=== PATIENT | male | born 1950 | race Caucasian/White ===

== ENCOUNTER 2021-06-05 15:28 | Inpatient (IN) ==
--- NOTE | 2021-06-05 15:34 | Emergency Department Note ---
Back Pain HPI General Chief Complaint: Back Pain/Injury Stated Complaint: head, neck and back pain Time Seen by Provider: 06/05/21 15:32 Source: patient Limitations: no limitations History of Present Illness HPI Narrative: Narrative: Patient is a 70-year-old male that presents to the emergency department today with complaint of sharp pain located at the upper portion of his neck, posterior of head and radiates to the lateral side of left and right side of head. Patient was initially seen at [facility] due to fever and tachycardia he was advised to come to the emergency department. He rates the Headache pain 7 out of 10 on a 0-10 numerical pain scale. Patient indicates that he has received Remicade infusion since 1987 and receives an infusion every 8 weeks. He received an infusion yesterday and when he went home his symptoms began. After the pain started he started to have fever and occasionally feeling chilled. He has had a cough but denies any shortness of breath or chest pain. He has not had any abdominal pain, nausea, or vomiting. He reports that his headache is aggravated with looking side to side. He denies any vision changes, confusion, or weakness. He denies any paresthesias. He denies any thoracic or low back pain. He denies any dysuria but has noticed some occasional urinary hesitancy. He has not had any flank pains. Patient receives Remicade for Crohn's. He does have a history of type 2 di abetes. He indicates that his blood sugars are typically in the 200s. His hemoglobin A1c March 05, 2021 was 11%. Related Data Home Medications Medication Instructions Recorded Confirmed calcium carbonate 600 mg-vitamin 1 tab PO QDAY tab 10/16/14 06/05/21 D3 20 mcg (800 unit) tablet vitamin E 400 unit capsule 400 unit PO DAILY 07/31/15 06/05/21 lecithin 1,200 mg capsule 1,200 mg PO .COMPLEX PRN 12/26/18 06/05/21 magnesium 250 mg tablet 400 mg PO BID tab 12/26/18 06/05/21 multivitamin with iron [One Tablet 1 cap PO QDAY 03/27/19 06/05/21 Daily/Iron] budesonide 3 mg 3 mg PO TID 08/28/20 06/05/21 capsule,delayed,extended release clonazepam 0.5 mg tablet 0.5 mg PO QHS 06/05/21 06/05/21 cyanocobalamin (vitamin B-12) 1,000 mcg IM QMONTH 06/05/21 06/05/21 1,000 mcg/mL injection solution doxepin 50 mg capsule 50 mg PO QHS 06/05/21 06/05/21 glipizide 5 mg tablet, extended 10 mg PO BID 06/05/21 06/05/21 release 24 hr metformin 500 mg tablet,extended 500 mg PO BID 06/05/21 06/05/21 release 24 hr Previous Rx's Medication Instructions Recorded omeprazole 20 mg capsule,delayed 20 mg PO TID #90 cap 09/06/19 release blood sugar diagnostic (Accu-Chek #100 each 04/13/20 SmartView Test Strip) albuterol sulfate 90 mcg/actuation 2 puff INHALATION .COMPLEX PRN #18 12/04/20 aerosol inhaler (Ventolin HFA) g lisinopril 40 mg tablet 40 mg PO QDAY #90 tab 01/18/21 Allergies Allergy/AdvReac Type Severity Reaction Status Date / Time azathioprine [From Imuran] Allergy Severe Unknown Verified 06/05/21 14:48 morphine Allergy Severe Anaphylaxis Verified 06/05/21 14:48 Zolpidem Allergy Mild Itching Verified 06/05/21 14:48 fluoxetine [From Prozac] Allergy Unknown Unknown Verified 06/05/21 14:48 sitagliptin [From Januvia] Allergy Unknown Stomach Verified 06/05/21 14:48 ache, diarrhea meperidine [From Demerol] AdvReac Mild Nausea Verified 06/05/21 14:48 naproxen AdvReac Unknown Fever Verified 06/05/21 14:48 ibuprofen [From Advil] AdvReac Hypertensio Verified 06/05/21 14:48 n oil based medications AdvReac Mild Other Uncoded 06/05/21 14:48 zepide AdvReac Mild Hallucinati Uncoded 06/05/21 14:48 ng Review of Systems ROS ROS Narrative: Narrative: All systems ED: reviewed and negative except as stated. [facility] Narrative Patient History Narrative: Narrative: Medical/Surgical/Family History All Active Problems (Updated 06/05/21 @ 20:59 by RINKU Ordoñez) COVID-19 (Acute) Fever (Acute) Diastasis recti (Acute) Nevus (Acute) Lumbar back pain with radiculopathy affecting right lower extremity (Acute) Buttock pain (Acute) Elbow pain, right (Acute) Shoulder pain, right (Acute) Influenza A (Acute) Type 2 diabetes mellitus with hyperglycemia (Chronic) Hypertension, essential, benign (Chronic) Anxiety (Chronic) Depression (Chronic) Pain of right heel (Chronic) Ganglion cyst of finger of right hand (Chronic) Visit for suture removal (Chronic) Seborrheic keratosis (Chronic) Osteoarthritis (Chronic) Skin lesions (Chronic) Essential hypertension (Chronic) Diabetes mellitus (Chronic) Stress reaction (Chronic) Sacroiliac joint pain (Chronic 11/03/06) Radicular pain of right lower extremity (Chronic 11/03/06) PUD (peptic ulcer disease) (Chronic 06/02/06) Paresthesia (Chronic 10/04/07) Osteoporosis (Chronic) Osteopenia (Chronic 06/07/06) Osteoarthritis of spine (Chronic 11/28/06) Neutropenia (Chronic) Myalgia (Chronic 02/28/12) Migraine (Chronic) Low back pain (Chronic 11/06/07) Long-term use of high-risk medication (Chronic 08/16/06) 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) Leukopenia (Chronic 08/31/06) Kidney stones (Chronic) Insomnia (Chronic 06/02/06) Hyperlipidemia (Chronic 04/11/08) Hiatal hernia (Chronic 12/07/09) Esophageal reflux (Chronic) Elevated liver enzymes (Chronic 05/01/08) Dysphagia (Chronic) Diabetes mellitus, type II (Chronic 08/19/09) DDD (degenerative disc disease), lumbar (Chronic 09/06/00) Crohn disease (Chronic 11/28/06) Carpal tunnel syndrome on both sides (Chronic 04/16/12) Anemia (Chronic) Anal fistula (Chronic) Achilles bursitis (Chronic 11/06/07) Medical History (Updated 06/05/21 @ 20:59 by RINKU Ordoñez) Abdominal pain, RLQ (06/12/11) Hx of Crohn's Disease Achilles bursitis (11/06/07) Acute tonsillitis Anal fistula 1985 Anemia Mild Anxiety Blast injury Bronchitis Bronchitis with bronchospasm Carpal tunnel syndrome on both sides (04/16/12) Cellulitis mild. Upper end of incision above elbow right side Crohn disease (11/28/06) 1997; 11-28-2006 currently stable DDD (degenerative disc disease), lumbar (09/06/00) Depression Diabetes mellitus Hemoglobin A1c now up to 8.6%. (Previously 7.9%) Diabetes mellitus, type II (08/19/09) Duodenitis without hemorrhage (06/19/06) Patchy Dysphagia Hx of intermittent to solids Elevated liver enzymes (05/01/08) 05-01-2008 & 05-16-2008 Encounter for blood transfusion 05/09/2008 - Past history of Esophageal reflux Stable at present Fracture of foot, closed 1992 Fx of back of heel bone. 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 Chronic, recurring. Myalgia (02/28/12) Suggestive of statin-induced myostitis. Neutropenia d/t Imuran Osteoarthritis of spine (11/28/06) Of the lumbar spine, degenerative Osteopenia (06/07/06) Of the hips Osteoporosis Pain of right heel Paresthesia (10/04/07) Lower Extremities. Pneumonia Spring 1954 Bronchial pneumonia. And 08-21-2006-Questionable R. perihliar infiltrate. PUD (peptic ulcer disease) (06/02/06) Radicular pain of right lower extremity (11/03/06) Sacroiliac joint pain (11/03/06) Right. Stress reaction Type 2 diabetes mellitus with hyperglycemia Visual disturbance (02/22/13) Wheezing intermittent Surgical History Closed fracture of upper end of right ulna with routine healing H/O adenoidectomy 1954 H/O carpal tunnel repair 08/20/12 Dr Zazueta, Left H/O colectomy (05/03/88) Status post R. colectomy & resection of 3 cm's of terminal ileum with sigmoid resection in 1988 for Crohn's disese H/O colonoscopy (09/07/11) Crohn's Disease- Crohn's ulceration at his ileocolonic anastomosis, which was patent. Sigmoid anastomosis patient w/out Crohn's activity. 08/[address] Quijano - found 5 polyps, 2 of which were benign. Crohn's ileitis. 07/31/15-2 adenomas, Crohn'sdisease at anastomosis. H/O esophagogastroduodenoscopy (09/07/11) 10/22/12 Dr Martinez, HH & gastritis. H/O foot surgery (03/04/11) Heel surgery for a R. foot deformity H/O hand surgery 1982 Left hand laceration. History of carpal tunnel release 09/2017 Dr Mars. Right wrist. History of esophagogastroduodenoscopy (EGD) Dr. Quijano 08/2019 History of nasal septoplasty (10/26/16) bilateral submucosal reduction of inferior turninates History of surgery on arm Right arm. From blood poisoning Hx of tonsillectomy Spring 1954 Multiple abrasions Multiple contusions Open olecranon fracture S/P small bowel resection S/P wrist surgery Left wrist about 30 years ago. Family History Unknown Diabetes mellitus Father Acute myocardial infarction Mother , Small cell type. She was a smoker Malignant neoplasm of lung Social History Smoking Status: Never smoker Alcohol Intake Frequency: holiday/special occasion only Substance Use: does not use Exam Narrative Narrative: Narrative: General Limitations: no limitations General appearance: Present alert and in no apparent distress Head Head: Present atraumatic, normocephalic and normal inspection Eye Eye: Present normal appearance, PERRL, EOMI and visual aquino intact; Absent scleral icterus, conjunctival injection or nystagmus ENT ENT: Present normal oropharynx, mucous membranes dry and TM's normal bilaterally; Absent hoarse voice Neck Neck: Present normal inspection, full ROM and other (Positive Kernig sign. Negative Brudzinski sign); Absent lymphadenopathy Expanded Neck Neck - focused: Present tenderness (other) (Mild tenderness with palpation on the paraspinal muscle left and right side of neck.), pain with extension and pain with flexion; Absent spinous process tenderness, anterior neck swelling, JVD or pain with rotation Chest Chest: Present normal inspection and symmetric chest wall rise Respiratory Respiratory: Present normal lung sounds bilaterally; Absent respiratory dist ress, rales/crackles or accessory muscle use Cardiovascular Cardiovascular: Present regular rate, normal rhythm and normal heart sounds; Absent systolic murmur or diastolic murmur Adbominal Abdominal: Present soft; Absent distention or tenderness Extremities Extremities: Present normal inspection, full ROM and normal capillary refill; Absent pretibial edema or cyanosis Back Back: Present normal inspection and full ROM; Absent spinous process tenderness Neurological Neurological: Present alert, oriented X3, CN II-XII intact and normal gait; Absent motor sensory deficit Expanded Neurological Coma Scale Eye Opening: Spontaneous Coma Scale Motor Response: Obeys Commands Coma Scale Verbal Response: Oriented Coma Scale Total: 15 Psychiatric Psychiatric: Present normal affect and normal mood Skin Skin: Present warm (WNL), dry and normal color Course Vital Signs Vital signs: Vital Signs Temperature 101.5 F H 06/05/21 15:30 Pulse Rate 124 H 06/05/21 15:30 Respiratory Rate 18 06/05/21 15:30 Blood Pressure 121/67 06/05/21 15:30 Pulse Oximetry (%) 93 06/05/21 15:30 Temperature 99.3 F H 06/05/21 18:30 Pulse Rate 96 H 06/05/21 20:46 Respiratory Rate 25 H 06/05/21 20:46 Blood Pressure 121/76 06/05/21 20:46 Pulse Oximetry (%) 94 06/05/21 20:46 [facility] MDM Narrative Medical decision making narrative: Narrative: 70-year-old male with fever and headache that comes into the emergency department today. He was tested for influenza and this was negative. His coronavirus test is positive today. Patient received a liter of normal saline, and ordered a CBC, CMP, blood cultures, and lactic acid. 1 view chest x-ray and head CT was obtained. Head CT today is negative. Patient is positive for coronavirus. His 1 view chest x-ray to my review may have some slight infiltrate. Radiology report still pending. I did discuss this case with supervising physician in the emergency department today, Dr. Peter Ingram. Patient had been complaining of headache and pain with flexion but no actual nuchal rigidity on exam. Positive Kernig and negative Brudzinski sign. Likely COVID-19 most likely cause of patient's headache and he received a liter of normal saline and 1000 g of acetaminophen IV. His headache did subside some and patient's temperature did reduce down to 99.3. Patient is still having tachypnea and mild tachycardia. He did receive a liter of normal saline in the emergency department. Tachycardia did reduce from 120s down to 103. Dr. Ingram did proceed with LP today which was not successful in obtaining this. Patient is still having tachypnea and would likely benefit from hospital admission given that he is high risk of worsening outcome with COVID-19. I was able to talk with Dr. Mendoza who is on today for the hospitalist. He agrees to accept patient to [facility] for inpatient admission. Lab Data Lab results reviewed: Yes I reviewed the patient's lab results. Result diagrams: 06/05/21 15:45 06/05/21 15:45 Labs: Lab Results 06/05/21 06/05/21 06/05/21 Range/Units 15:45 15:45 15:45 WBC 7.4 (4.5-11.0) K/mcL RBC 4.21 L (4.63-6.08) M/mcL Hgb 11.4 L (13.7-17.5) g/dL Hct 35.8 L (40.1-51.0) % MCV 85.0 (80.0-100.0) fL MCH 27.1 (26.0-34.0) pg MCHC 31.8 (31.0-36.0) g/dL RDW 16.5 H (11.5-14.5) % Plt Count 217 (140-440) K/mcL MPV 10.2 (7.4-10.4) fL Neut % (Auto) 61.3 (38.0-78.0) % Lymph % (Auto) 18.1 (15.5-49.0) % [place] % (Auto) 20.2 H (1.0-12.0) % Eos % (Auto) 0.3 (0.0-7.0) % Baso % (Auto) 0.1 (0.0-2.0) % Lymph # (Auto) 1.34 L (1.50-4.80) K/mcL [place] # (Auto) 1.50 H (0.10-0.90) K/mcL Eos # (Auto) 0.02 (0.00-0.70) K/mcL Baso # (Auto) 0.01 (0.00-0.30) K/mcL Absolute Neutrophils 4.54 (1.80-8.00) K/mcL VBG Lactic Acid 1.1 (0.5-2.0) mmol/L Sodium 132 L (133-145) mmol/L Potassium 3.9 (3.3-5.1) mmol/L Chloride 99 (96-108) mmol/L Carbon Dioxide 20 L (22-30) mmol/L Anion Gap 13.0 (8.0-16.0) BUN 10 (8-23) mg/dL Creatinine 1.1 (0.7-1.2) mg/dL GFR Calculation 68 Glucose 210 H (70-105) mg/dL Calcium 9.1 (8.6-10.4) mg/dL Total Bilirubin 0.3 (0.1-1.0) mg/dL AST 46 H (<40) U/L ALT 37 (<40) U/L Alkaline Phosphatase 75 (39-117) U/L Total Protein 7.0 (5.9-8.4) gm/dL Albumin 3.9 (3.2-5.2) gm/dL Globulin 3.1 (2.2-3.7) gm/dL Albumin/Globulin Ratio 1.3 (1.0-2.3) Urine Color Urine Appearance (Clear) Urine pH (5.0-9.0) Ur Specific Lerna (1.000-1.035) Urine Protein (Negative) mg/dL Urine Glucose (UA) (Negative) mg/dL Urine Ketones (Negative) mg/dL Urine Occult Blood (Negative) brenna/mcL Urine Nitrate (Negative) Urine Bilirubin (Negative) mg/dL Urine Urobilinogen mg/dL Ur Leukocyte Esterase (Negative) /uL Urine RBC (0-3) /hpf Urine WBC (0-4) /hpf Ur Squamous Epith Cells (0-4) /hpf Urine Bacteria (0) /hpf Urine Mucus (None) /hpf Ur Culture Indicated? 06/05/21 Range/Units 16:00 WBC (4.5-11.0) K/mcL RBC (4.63-6.08) M/mcL Hgb (13.7-17.5) g/dL Hct (40.1-51.0) % MCV (80.0-100.0) fL MCH (26.0-34.0) pg MCHC (31.0-36.0) g/dL RDW (11.5-14.5) % Plt Count (140-440) K/mcL MPV (7.4-10.4) fL Neut % (Auto) (38.0-78.0) % Lymph % (Auto) (15.5-49.0) % [place]ford % (Auto) (1.0-12.0) % Eos % (Auto) (0.0-7.0) % Baso % (Auto) (0.0-2.0) % Lymph # (Auto) (1.50-4.80) K/mcL [place]ford # (Auto) (0.10-0.90) K/mcL Eos # (Auto) (0.00-0.70) K/mcL Baso # (Auto) (0.00-0.30) K/mcL Absolute Neutrophils (1.80-8.00) K/mcL VBG Lactic Acid (0.5-2.0) mmol/L Sodium (133-145) mmol/L Potassium (3.3-5.1) mmol/L Chloride (96-108) mmol/L Carbon Dioxide (22-30) mmol/L Anion Gap (8.0-16.0) BUN (8-23) mg/dL Creatinine (0.7-1.2) mg/dL GFR Calculation Glucose (70-105) mg/dL Calcium (8.6-10.4) mg/dL Total Bilirubin (0.1-1.0) mg/dL AST (<40) U/L ALT (<40) U/L Alkaline Phosphatase (39-117) U/L Total Protein (5.9-8.4) gm/dL Albumin (3.2-5.2) gm/dL Globulin (2.2-3.7) gm/dL Albumin/Globulin Ratio (1.0-2.3) Urine Color Yellow Urine Appearance Clear (Clear) Urine pH 5.5 (5.0-9.0) Ur Specific Lerna >= 1.030 (1.000-1.035) Urine Protein Trace A (Negative) mg/dL Urine Glucose (UA) 500 mg/dl A (Negative) mg/dL Urine Ketones Trace A (Negative) mg/dL Urine Occult Blood Negative (Negative) brenna/mcL Urine Nitrate Negative (Negative) Urine Bilirubin Negative (Negative) mg/dL Urine Urobilinogen Normal mg/dL Ur Leukocyte Esterase Negative (Negative) /uL Urine RBC 0 (0-3) /hpf Urine WBC 1 (0-4) /hpf Ur Squamous Epith Cells < 1 (0-4) /hpf Urine Bacteria None (0) /hpf Urine Mucus Many A (None) /hpf Ur Culture Indicated? No ED POC Tests ED POC Tests: CHRISSY - SARS Antigen Positive Discharge Plan Patient/Caregiver Discharge Instructions Pt seen by [employer] OPERATOR/PA only: No Clinical Impression: COVID-19 Patient Disposition: Xfer As Inpt ([facility]) Follow up with: Nick Gonslaez ARNP [Primary Care Provider] - Prescriptions: No Action omeprazole 20 mg capsule,delayed release(DR/EC) 20 mg PO TID Qty: 90 5RF (DME) Accu-Chek SmartView Test Strip Strip See Rx Instructions .ROUTE .MEDSUPPLY Qty: 100 0RF Rx Instructions: test blood glucose once daily. DX: E11.65 lisinopril 40 mg tablet 40 mg PO QDAY Qty: 90 1RF calcium carbonate-vitamin D3 600 mg(1,500mg) -800 unit tablet 1 tab PO QDAY 0RF Rx Instructions: administer with food lecithin 1,200 mg capsule 1,200 mg PO .COMPLEX PRN (Reason: Mouth Sore Pain) 0RF Label Comments: 1,200 mg PO PRN; Rx Instructions: 1,200 mg PO PRN; multivitamin with iron 1 cap PO QDAY 0RF Rx Instructions: OTC IRON TABLET qd albuterol sulfate [Ventolin HFA] 90 mcg/actuation HFA aerosol inhaler 2 puff inhalation .COMPLEX PRN (Reason: shortness of breath or wheezing) Qty: 18 2RF Rx Instructions: 2 puffs inhalation q 4-6 hrs prn for wheezing and/or SOB PRN; vitamin E 400 UNIT capsule 400 unit PO DAILY 0RF magnesium 250 mg tablet 400 mg PO BID 0RF budesonide 3 mg Capsule,Delayed,Extend.Release 3 mg PO TID 0RF doxepin 50 mg capsule 50 mg PO QHS 0RF Rx Instructions: TAKE 1 CAPSULE AT BEDTIME clonazepam 0.5 mg tablet 0.5 mg PO QHS 0RF Rx Instructions: take 1 tablet by mouth at bedtime glipizide 5 mg tablet extended release 24 hr 10 mg PO BID 0RF Rx Instructions: TAKE 2 TABLETS EVERY MORNING AND 2 TABLET EVERY EVENING metformin 500 mg tablet extended release 24 hr 500 mg PO BID 0RF Rx Instructions: take 2 tablets by mouth twice a day cyanocobalamin (vitamin B-12) 1,000 mcg/mL solution 1,000 mcg IM QMONTH 0RF Rx Instructions: inject 1 milliliter ( 1000 MCG ) intramuscularly Every Month
[2021-06-05] MEDS ORDERED: 0.9 % SODIUM CHLORIDE 1,000 ML IV ONE (15:35)
[2021-06-05] MEDS ORDERED: ACETAMINOPHEN 1,000 MG/100 ML BAG IV ONE (16:02)
[2021-06-05 16:58] LABS: ALT/SGPT 37 U/L (<40); AST/SGOT 46 U/L (<40); Albumin 3.9 gm/dL (3.2-5.2); Albumin/Globulin Ratio 1.3 (1.0-2.3); Alkaline Phosphatase 75 U/L (39-117); Bilirubin,Total 0.3 mg/dL (0.1-1.0); Blood Urea Nitrogen 10 mg/dL (8-23); Calcium 9.1 mg/dL (8.6-10.4); Carbon Dioxide 20 mmol/L (22-30); Chloride 99 mmol/L (96-108); Globulin 3.1 gm/dL (2.2-3.7); Glomerular Filtration Rate 68; Glucose 210 mg/dL (70-105)
--- NOTE | 2021-06-05 17:19 | Emergency Department Note ---
ED Note Addendum Note Addendum: I evaluated and treated this patient in conjunction with the NIKKY. I agree with their documented history, examination and medical decision making as documented separately. I personally saw the patient and performed a substantive portion of the visit including all aspects of the medical decision making. In addition: Patient is complaining of a headache. He has significant accentuation of his headache with flexion of his neck but no actual nuchal rigidity on exam. I discussed the initial test results with the patient. While I think COVID-19 is the most likely cause of his headache I think there is also a distinct possibility of a false positive test result and meningitis given the fact that he is on significant immunosuppression. I recommended a lumbar puncture and the patient is agreeable with this. Lumbar puncture Verbal and written consent was obtained from patient prior to the procedure. Patient was placed in the left lateral recumbent position. Skin was prepped with Betadine and draped in a sterile fashion. Anesthesia was provided with local infiltration of 1% lidocaine with epinephrine. A 22-gauge Avtar needle was advanced into the L4-L5 interspace. After multiple attempts at redirection no CSF was obtained. The procedure was then repeated in the L3-L4 interspace an d once again no CSF was able to be obtained. The procedure was then aborted. A clean dressing was applied. No complications were observed.
[2021-06-05 17:33] LABS: Appearance,Urine Clear (Clear); Bilirubin,Urine Negative (Negative); Color,Urine Yellow; Culture Indicated,Urine No; Ketones,Urine Trace mg/dL (Negative); Leukocyte Esterase,Urine Negative /uL (Negative); Mucus,Urine MANY /hpf; Nitrate,Urine Negative (Negative); PH,Urine 5.5 (5.0-9.0); Protein,Urine Trace mg/dL (Negative); Specific Gravity,Urine >= 1.030 (1.000-1.035); Urine Blood Negative ery/mcL (Negative); Urine RBC 0 /hpf (0-3); Urine Squamous Epithelial Cell < 1 /hpf (0-4); Urine WBC 1 /hpf (0-4); Urobilinogen,Urine Normal
[2021-06-05 17:56] LABS: Basophils # (Auto) 0.01 K/mcL (0.00-0.30); Basophils % (Auto) 0.1 % (0.0-2.0); Eosinophils # (Auto) 0.02 K/mcL (0.00-0.70); Eosinophils % (Auto) 0.3 % (0.0-7.0); Hematocrit 35.8 % (40.1-51.0); Hemoglobin 11.4 g/dL (13.7-17.5); Lymphocytes # (Auto) 1.34 K/mcL (1.50-4.80); Lymphocytes % (Auto) 18.1 % (15.5-49.0); Mean Corpuscular HGB Conc 31.8 g/dL (31.0-36.0); Mean Platelet Volume 10.2 fL (7.4-10.4); Monocytes % (Auto) 20.2 % (1.0-12.0); Neutrophils % (Auto) 61.3 % (38.0-78.0); Platelet Count 217 K/mcL (140-440); RBC 4.21 M/mcL (4.63-6.08); Red Cell Distribution Width 16.5 % (11.5-14.5); WBC 7.4 K/mcL (4.5-11.0)
--- NOTE | 2021-06-05 20:33 | Internal Med History&Physical ---
HPI History of Present Illness Patient information: Note initiated : 06/05/21 at 8:19 pm Service Date, if different from initiated Date: [] Patient: Semaj Garnica a 70 y/o M admitted on for head, neck and back pain. Chief Complaint: [] History of present illness: Mr. Garnica is a 70 year old M Scented to minor care because he felt weak headaches body aches fever lightheadedness. He got his Remicade infusion for Crohn's yesterday morning and then started feeling crummy afterwards and has continued since that time. He has a bad headache with pain in the neck as well. No significant photophobia more than usual. Does complain of stiff neck. No nausea vomiting. Is found to be tachycardic tachypneic and febrile in the ED. Has had the Isaac & Isaac vaccine and booster. He has had a cough and shortness of breath. Head CT was negative. Covid test was positive. Given the headache fever stiff neck and an LP was attempted but unsuccessful. Tachycardia improved with IV fluids. Review of Systems: Pertinent positives as above. Denies nausea/vomiting/chest or pain/. Remaining 10 point review of system reviewed negative PFSH PFSH All Active Problems (Updated 06/05/21 @ 15:22 by Herminio Valdovinos PA-C) Fever (Acute) Diastasis recti (Acute) Nevus (Acute) Lumbar back pain with radiculopathy affecting right lower extremity (Acute) Buttock pain (Acute) Elbow pain, right (Acute) Shoulder pain, right (Acute) Influenza A (Acute) Type 2 diabetes mellitus with hyperglycemia (Chronic) Hypertension, essential, benign (Chronic) Anxiety (Chronic) Depression (Chronic) Pain of right heel (Chronic) Ganglion cyst of finger of right hand (Chronic) Visit for suture removal (Chronic) Seborrheic keratosis (Chronic) Osteoarthritis (Chronic) Skin lesions (Chronic) Essential hypertension (Chronic) Diabetes mellitus (Chronic) Stress reaction (Chronic) Sacroiliac joint pain (Chronic 11/03/06) Radicular pain of right lower extremity (Chronic 11/03/06) PUD (peptic ulcer disease) (Chronic 06/02/06) Paresthesia (Chronic 10/04/07) Osteoporosis (Chronic) Osteopenia (Chronic 06/07/06) Osteoarthritis of spine (Chronic 11/28/06) Neutropenia (Chronic) Myalgia (Chronic 02/28/12) Migraine (Chronic) Low back pain (Chronic 11/06/07) Long-term use of high-risk medication (Chronic 08/16/06) 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) Leukopenia (Chronic 08/31/06) Kidney stones (Chronic) Insomnia (Chronic 06/02/06) Hyperlipidemia (Chronic 04/11/08) Hiatal hernia (Chronic 12/07/09) Esophageal reflux (Chronic) Elevated liver enzymes (Chronic 05/01/08) Dysphagia (Chronic) Diabetes mellitus, type II (Chronic 08/19/09) DDD (degenerative disc disease), lumbar (Chronic 09/06/00) Crohn disease (Chronic 11/28/06) Carpal tunnel syndrome on both sides (Chronic 04/16/12) Anemia (Chronic) Anal fistula (Chronic) Achilles bursitis (Chronic 11/06/07) Medical History (Updated 06/05/21 @ 15:22 by Herminio Valdovinos PA-C) Abdominal pain, RLQ (06/12/11) Hx of Crohn's Disease Achilles bursitis (11/06/07) Acute tonsillitis Anal fistula 1985 Anemia Mild Anxiety Blast injury Bronchitis Bronchitis with bronchospasm Carpal tunnel syndrome on both sides (04/16/12) Cellulitis mild. Upper end of incision above elbow right side Crohn disease (11/28/06) 1997; 11-28-2006 currently stable DDD (degenerative disc disease), lumbar (09/06/00) Depression Diabetes mellitus Hemoglobin A1c now up to 8.6%. (Previously 7.9%) Diabetes mellitus, type II (08/19/09) Duodenitis without hemorrhage (06/19/06) Patchy Dysphagia Hx of intermittent to solids Elevated liver enzymes (05/01/08) 05-01-2008 & 05-16-2008 Encounter for blood transfusion 05/09/2008 - Past history of Esophageal reflux Stable at present Fracture of foot, closed 1992 Fx of back of heel bone. 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 Chronic, recurring. Myalgia (02/28/12) Suggestive of statin-induced myostitis. Neutropenia d/t Imuran Osteoarthritis of spine (11/28/06) Of the lumbar spine, degenerative Osteopenia (06/07/06) Of the hips Osteoporosis Pain of right heel Paresthesia (10/04/07) Lower Extremities. Pneumonia Spring 1954 Bronchial pneumonia. And 08-21-2006-Questionable R. perihliar infiltrate. PUD (peptic ulcer disease) (06/02/06) Radicular pain of right lower extremity (11/03/06) Sacroiliac joint pain (11/03/06) Right. Stress reaction Type 2 diabetes mellitus with hyperglycemia Visual disturbance (02/22/13) Wheezing intermittent Surgical History Closed fracture of upper end of right ulna with routine healing H/O adenoidectomy 1954 H/O carpal tunnel repair 08/20/12 Dr Zazueta, Left H/O colectomy (05/03/88) Status post R. colectomy & resection of 3 cm's of terminal ileum with sigmoid resection in 1988 for Crohn's disese H/O colonoscopy (09/07/11) Crohn's Disease- Crohn's ulceration at his ileocolonic anastomosis, which was patent. Sigmoid anastomosis patient w/out Crohn's activity. 08/[address] Quijano - found 5 polyps, 2 of which were benign. Crohn's ileitis. 07/31/15-2 adenomas, Crohn'sdisease at anastomosis. H/O esophagogastroduodenoscopy (09/07/11) 10/22/12 Dr Martinez, HH & gastritis. H/O foot surgery (03/04/11) Heel surgery for a R. foot deformity H/O hand surgery 1982 Left hand laceration. History of carpal tunnel release 09/2017 Dr Mars. Right wrist. History of esophagogastroduodenoscopy (EGD) Dr. Quijano 08/2019 History of nasal septoplasty (10/26/16) bilateral submucosal reduction of inferior turninates History of surgery on arm Right arm. From blood poisoning Hx of tonsillectomy Spring 1954 Multiple abrasions Multiple contusions Open olecranon fracture S/P small bowel resection S/P wrist surgery Left wrist about 30 years ago. Family History Unknown Diabetes mellitus Father Acute myocardial infarction Mother , Small cell type. She was a smoker Malignant neoplasm of lung Social History household members: spouse housing: house lives independently: Yes marital status: education level: high school occupational status: employed occupation: [employer] occupational exposures/hazards: Yes leisure activities: exercise alcohol intake frequency: holiday/special occasion only substance use type: does not use MEDS/ALLERGIES Home Medications and Allergies Home Medications Medication Instructions Recorded Confirmed Type calcium carbonate 600 mg-vitamin 1 tab PO QDAY tab 10/16/14 06/05/21 History D3 20 mcg (800 unit) tablet vitamin E 400 unit capsule 400 unit PO DAILY 07/31/15 06/05/21 History lecithin 1,200 mg capsule 1,200 mg PO .COMPLEX PRN 12/26/18 06/05/21 History magnesium 250 mg tablet 400 mg PO BID tab 12/26/18 06/05/21 History multivitamin with iron [One Tablet 1 cap PO QDAY 03/27/19 06/05/21 History Daily/Iron] omeprazole 20 mg capsule,delayed 20 mg PO TID #90 cap 09/06/19 06/05/21 Rx release blood sugar diagnostic (Accu-Chek #100 each 04/13/20 06/05/21 Rx SmartView Test Strip) budesonide 3 mg 3 mg PO TID 08/28/20 06/05/21 History capsule,delayed,extended release albuterol sulfate 90 mcg/actuation 2 puff INHALATION .COMPLEX PRN #18 12/04/20 06/05/21 Rx aerosol inhaler (Ventolin HFA) g lisinopril 40 mg tablet 40 mg PO QDAY #90 tab 01/18/21 06/05/21 Rx clonazepam 0.5 mg tablet 0.5 mg PO QHS 06/05/21 06/05/21 History cyanocobalamin (vitamin B-12) 1,000 mcg IM QMONTH 06/05/21 06/05/21 History 1,000 mcg/mL injection solution doxepin 50 mg capsule 50 mg PO QHS 06/05/21 06/05/21 History glipizide 5 mg tablet, extended 10 mg PO BID 06/05/21 06/05/21 History release 24 hr metformin 500 mg tablet,extended 500 mg PO BID 06/05/21 06/05/21 History release 24 hr Allergies Allergy/AdvReac Type Severity Reaction Status Date / Time azathioprine [From Imuran] Allergy Severe Unknown Verified 06/05/21 14:48 morphine Allergy Severe Anaphylaxis Verified 06/05/21 14:48 Zolpidem Allergy Mild Itching Verified 06/05/21 14:48 fluoxetine [From Prozac] Allergy Unknown Unknown Verified 06/05/21 14:48 sitagliptin [From Januvia] Allergy Unknown Stomach Verified 06/05/21 14:48 ache, diarrhea meperidine [From Demerol] AdvReac Mild Nausea Verified 06/05/21 14:48 naproxen AdvReac Unknown Fever Verified 06/05/21 14:48 ibuprofen [From Advil] AdvReac Hypertensio Verified 06/05/21 14:48 n oil based medications AdvReac Mild Other Uncoded 06/05/21 14:48 zepide AdvReac Mild Hallucinati Uncoded 06/05/21 14:48 ng EXAM Constitutional Vitals: Temp Pulse Resp BP Pulse Ox 99.3 F H 100 H 28 H 116/73 91 06/05/21 18:30 06/05/21 19:46 06/05/21 19:46 06/05/21 19:46 06/05/21 19:46 Exam: General: Alert, Awake, No acute Distress Eyes/N/T: EOMI, PERRL, Head/Neck: pain with passive movement after certain point of flexion or rotation not like typical meningitis patient, normocephalic atraumatic. Unable to elicit Brudzinski and Kernig signs CV: Tacky but regular, No murmurs, normal s1/s2 Pulm: Mild rhonchi b/l, occasional wheeze s Abd: soft, nontender, +BS x4 Ext: no clubbing/cyanosis, trace b/l LE edema Neuro: Alert, no focal deficits, moves all extremities, CN 2-12 grossly intact, symmetrical strength b/l upper/lower, sensations intact b/l upper/lower. Ment ation intact. Skin: warm/dry DATA Data Completed and Pending Labs: Labs from last 24 hours 06/05/21 06/05/21 06/05/21 16:00 15:45 15:45 WBC RBC Hgb Hct MCV MCH MCHC RDW Plt Count MPV Neut % (Auto) Lymph % (Auto) [place] % (Auto) Eos % (Auto) Baso % (Auto) Lymph # (Auto) [place] # (Auto) Eos # (Auto) Baso # (Auto) Absolute Neutrophils VBG Lactic Acid 1.1 Sodium 132 L Potassium 3.9 Chloride 99 Carbon Dioxide 20 L Anion Gap 13.0 BUN 10 Creatinine 1.1 GFR Calculation 68 Glucose 210 H Calcium 9.1 Total Bilirubin 0.3 AST 46 H ALT 37 Alkaline Phosphatase 75 Total Protein 7.0 Albumin 3.9 Globulin 3.1 Albumin/Globulin Ratio 1.3 Urine Color Yellow Urine Appearance Clear Urine pH 5.5 Ur Specific Yolyn >= 1.030 Urine Protein Trace A Urine Glucose (UA) 500 mg/dl A Urine Ketones Trace A Urine Occult Blood Negative Urine Nitrate Negative Urine Bilirubin Negative Urine Urobilinogen Normal Ur Leukocyte Esterase Negative Urine RBC 0 Urine WBC 1 Ur Squamous Epith Cells < 1 Urine Bacteria None Urine Mucus Many A Ur Culture Indicated? No 06/05/21 15:45 WBC 7.4 RBC 4.21 L Hgb 11.4 L Hct 35.8 L MCV 85.0 MCH 27.1 MCHC 31.8 RDW 16.5 H Plt Count 217 MPV 10.2 Neut % (Auto) 61.3 Lymph % (Auto) 18.1 [place] % (Auto) 20.2 H Eos % (Auto) 0.3 Baso % (Auto) 0.1 Lymph # (Auto) 1.34 L [place] # (Auto) 1.50 H Eos # (Auto) 0.02 Baso # (Auto) 0.01 Absolute Neutrophils 4.54 VBG Lactic Acid Sodium Potassium Chloride Carbon Dioxide Anion Gap BUN Creatinine GFR Calculation Glucose Calcium Total Bilirubin AST ALT Alkaline Phosphatase Total Protein Albumin Globulin Albumin/Globulin Ratio Urine Color Urine Appearance Urine pH Ur Specific [place]yn Urine Protein Urine Glucose (UA) Urine Ketones Urine Occult Blood Urine Nitrate Urine Bilirubin Urine Urobilinogen Ur Leukocyte Esterase Urine RBC Urine WBC Ur Squamous Epith Cells Urine Bacteria Urine Mucus Ur Culture Indicated? A/P Narrative A/P Narrative: A: *SIRS (Febrile, tachycardic,tachypnic): 2/2 covid vs other *covid PNA: *Acute hypoxic respiratory failure: 2/2 above *headache/neck pain: does present like typical meningitis -CT neg, initial LP unsuccessful *Crohns: on remicade, symptoms started after recent infusion *Immunosuppressed: 2/2 above *DM: *Anemia: *HTN: *GERD: *Hyponatremia, mild: P: -Rem/Dex -O2 supp, IS/Acapella, prn nebs -empric abx for meningitis until LP done -BC including fungal given immunosuppression -abg/dimer -Inflammatory/infectious markers -SSI -Continue home medications -Home medication reconciliation -pt/ot -ppx: Lovenox / home PPI DNR Time Spent With Patient Time: Total time spent is greater than 50% in coordination of care (as documented) at patient's floor/unit and/or counseling patient:
[2021-06-05] MEDS ORDERED: DEXAMETHASONE 10 MG/ML VIAL IV ONE (20:40)
[2021-06-05] MEDS ORDERED: REMDESIVIR 200 MG in 0.9 % SODIUM CHLORIDE 250 ML IV ONE (20:40)
[2021-06-05 21:00] LABS: Prothrombin Time 13.5 sec (11.9-14.5)
[2021-06-05] MEDS ORDERED: VANCOMYCIN 1,500 MG in 0.9 % SODIUM CHLORIDE 500 ML IV ONE (21:45)
[2021-06-05] MEDS ORDERED: VANCOMYCIN PER PHARMACY IV SCH (21:45)
[2021-06-05] MEDS ORDERED: POTASSIUM CHLORIDE 40 MEQ in DEXTROSE 5% IN WATER 500 ML IV PRN (22:06)
[2021-06-05] MEDS ORDERED: ALBUTEROL SULFATE 200 PUFF INHALER INH PRN (22:06)
[2021-06-05] MEDS ORDERED: DEXTROSE 31 GM ORAL.SUSP PO PRN (22:06)
[2021-06-05] MEDS ORDERED: DEXTROSE 50% 50 ML VIAL IV PRN (22:06)
[2021-06-05] MEDS ORDERED: ONDANSETRON 4 MG/2 ML VIAL IV PRN (22:06)
[2021-06-05] MEDS ORDERED: DOXEPIN 50 MG PO SCH (22:06)
[2021-06-05] MEDS ORDERED: SENNOSIDES 1 TABLET PO PRN (22:06)
[2021-06-05] MEDS ORDERED: POTASSIUM CHLORIDE 20 MEQ TABLET PO PRN ×2 (22:06)
[2021-06-05] MEDS ORDERED: METOCLOPRAMIDE 10 MG/2 ML VIAL IV PRN (22:06)
[2021-06-05] MEDS ORDERED: MAGNESIUM SULFATE 2 GM/50 ML BAG IV PRN (22:06)
[2021-06-05] MEDS ORDERED: BUTALB/ACETAMINOPHEN/CAFFEINE 1 TABLET PO PRN (22:06)
[2021-06-05] MEDS ORDERED: IPRATROPIUM/ALBUTEROL 3 ML AMPUL.NEB NEB PRN (22:06)
[2021-06-05] MEDS ORDERED: VANCOMYCIN PER PHARMACY IV ONE (22:06)
[2021-06-05] MEDS ORDERED: OMEPRAZOLE 20 MG CAPSULE PO SCH (22:06)
[2021-06-05] MEDS ORDERED: POLYETHYLENE GLYCOL 3350 17 GM PACKET PO PRN (22:06)
[2021-06-05] MEDS ORDERED: ENOXAPARIN 40 MG/0.4 ML SYRINGE SQ ONE (22:06)
[2021-06-05] MEDS ORDERED: ACETAMINOPHEN 325 MG TABLET PO PRN (22:06)
[2021-06-05 22:49] LABS: C-Reactive Protein 0.5 mg/dL (0.03-0.80)
[2021-06-05 22:59] LABS: Ferritin 26.1 ng/mL (30.0-400.0)
[2021-06-05] MEDS: 0.9 % SODIUM CHLORIDE 1,000 ML IV SCH (23:39)
[2021-06-05] MEDS: 0.9 % SODIUM CHLORIDE 10 ML SYRINGE IV SCH (23:39)
[2021-06-05] MEDS ORDERED: ENOXAPARIN 40 MG/0.4 ML SYRINGE ONE (23:39)
[2021-06-05] MEDS ORDERED: clonazePAM 1 MG TABLET ONE (23:40)
[2021-06-05] MEDS ORDERED: INSULIN LISPRO 1 UNIT/0.01 ML UNIT SQ ONE (23:51)
[2021-06-05] MEDS: INSULIN LISPRO 1 UNIT/0.01 ML UNIT SQ SCH (23:53)
[2021-06-06] MEDS: clonazePAM 0.5 MG TABLET PO SCH ×2 (00:10→21:10)
[2021-06-06] MEDS: CEFEPIME 2 GM VIAL IV SCH ×5 (00:11→21:09)
[2021-06-06] MEDS: AMPICILLIN SODIUM 2 GM VIAL IV SCH ×3 (01:32→06:44)
[2021-06-06] MEDS: BUDESONIDE 3 MG CAP.XL.24H PO SCH ×4 (01:33→21:10)
--- NOTE | 2021-06-06 01:44 | XRay Report ---
CLINICAL INFORMATION: Cough and fever COMPARISON: 07/17/2019 TECHNIQUE: Portable FINDINGS: The heart size, mediastinum and pulmonary vessels are unremarkable. Few small calcified granulomas in the perihilar regions again seen. Minor atelectasis left lateral base noted. There are no effusions. The bones and soft tissues are within normal limits. IMPRESSION: Mild atelectasis left lateral base. Interpreted and Authenticated by: Tamir Anderson 06/06/21
--- NOTE | 2021-06-06 01:50 | Cat Scan Report ---
CLINICAL INFORMATION: Headache and fever COMPARISON: None. TECHNIQUE: 2.5 mm helical slices were obtained in the skull base to vertex. Following reconstruction, axial reformatted images were reviewed at bone and parenchymal windows. The exam was performed using radiation dose optimization techniques including, but not limited to, automated exposure control, adjustment of the mA and/or kV according to patient size and use of iterative reconstruction technique. FINDINGS: The ventricles, sulci, fissures, and cisterns are symmetrically enlarged compatible with mild age-related atrophy. No extra-axial fluid collections are identified. Mild patchy chronic ischemic changes, in the deep cerebral white matter, are expected for age. There is no hemorrhage, mass effect, or edema. Bone windows show no osseous abnormality. IMPRESSION: Mild atrophy and chronic ischemic changes in the deep cerebral white matter-expected for age. No acute findings Interpreted and Authenticated by: Tamir Anderson 06/06/21
[2021-06-06] MEDS: 0.9 % SODIUM CHLORIDE 10 ML SYRINGE IV SCH ×3 (05:37→21:12)
[2021-06-06 07:55] LABS: Hematocrit 33.1 % (40.1-51.0); Mean Cell Volume 88.7 fL (80.0-100.0); Mean Corpuscular HGB Conc 30.2 g/dL (31.0-36.0); Mean Platelet Volume 9.9 fL (7.4-10.4); Platelet Count 175 K/mcL (140-440); RBC 3.73 M/mcL (4.63-6.08); Red Cell Distribution Width 16.8 % (11.5-14.5); WBC 4.5 K/mcL (4.5-11.0)
--- NOTE | 2021-06-06 08:03 | Internal Med Progress Note ---
SUBJECTIVE Subjective Patient information: Note initiated : 06/06/21 at 7:53 am Service Date, if different from initiated Date: [] Patient: Semaj Garnica a 70 y/o M admitted on 06/05/21 for head, neck and back pain. Chief Complaint: [] Interval history: Chief Complaint: [] History of present illness: Mr. Garnica is a 70 year old M Scented to minor care because he felt weak headaches body aches fever lightheadedness. He got his Remicade infusion for Crohn's yesterday morning and then started feeling crummy afterwards and has continued since that time. He has a bad headache with pain in the neck as well. No significant photophobia more than usual. Does complain of stiff neck. No nausea vomiting. Is found to be tachycardic tachypneic and febrile in the ED. Has had the Isaac & Isaac vaccine and booster. has had a cough and shortness of breath. Head CT was negative. Covid test was positive. Given the headache fever stiff neck and an LP was attempted but unsuccessful. Tachycardia improved with IV fluids. 06/06 Patient states that he only has a mild headache. He flexes and rotates his neck and says he only feels some mild muscle tenderness. Minimal cough and shortness of breath much better. CTA with no PEs but did show small tree-in-bud infiltrate inferior right lower. Lumbar puncture done with opening pressure only 8 and clear fluid. Low ESR and CRP and procalcitonin Review of Systems: denies fever/chills/nausea/vomiting/chest or abdominal paindiarrhea. Otherwise see above. Constitutional Vitals: Vital Signs Temp Pulse Resp BP Pulse Ox 98.3 F 84 18 129/67 91 06/06/21 07:14 06/06/21 07:14 06/06/21 07:14 06/06/21 07:14 06/06/21 07:14 Period Temp Pulse Resp BP Sys/[place] Pulse Ox Last 24 Hr 98.3 F-101.5 F 84-124 12-28 102-147/59-88 85-97 Intake and Output 06/05/21 06/06/21 06/06/21 21:59 05:59 13:59 Intake Total 1100 1110 Output Total 401 350 Balance 1100 709 -350 Weight 89.358 kg 89.386 kg Intake & Output: Intake & Output 06/05/21 06/06/21 06/06/21 21:59 05:59 13:59 Intake Total 1100 1110 Output Total 401 350 Balance 1100 709 -350 Weight 89.358 kg 89.386 kg Intake: IV 1100 750 Sodium Chloride 0.9% 1,000 ml @ 1000 Wide Open IV BOLUS ONE Rx#: [id number] Veklury 200 mg In Sodium 250 Chloride 0.9% 250 ml @ 500 mls/ hr IV ONCE ONE Rx#:[id number] Vancomycin 1,500 mg In Sodium 500 Chloride 0.9% 500 ml @ 333.3 mls/hr IV ONCE ONE Rx#: [id number] Oral 360 Output: Void Amount 400 350 # of times incontinent of urine 1 Other: Urine Appearance Clear Urine Color Dark Yellow Stool Consistency Liquid Loose # Voids 1 # Bowel Movements 1 Exam: General: Alert, Awake, No acute Distress Eyes/N/T: EOMI, , Head/Neck: neck supple, good ROM CV: RRR, No murmurs, normal s1/s2 Pulm: clear b/l, no wheezing Abd: soft, nontender, +BS x4 Ext: no clubbing/cyanosis, trace b/l LE edema Neuro: Alert, no focal deficits, moves all extremities, Mentation clear. Skin: warm/dry OBJ DATA Labs CBC & Chem 7: 06/06/21 04:56 06/06/21 04:56 Labs: Abnormal Lab Results 06/05/21 06/05/21 06/05/21 16:00 15:45 15:45 RBC Hgb Hct RDW [place] % (Auto) Lymph # (Auto) [place] # (Auto) ESR 23 H D-Dimer Sodium Carbon Dioxide Glucose Ferritin 26.1 L AST Urine Protein Trace A Urine Glucose (UA) 500 mg/dl A Urine Ketones Trace A Urine Mucus Many A 06/05/21 06/05/21 06/05/21 15:45 15:45 15:45 RBC 4.21 L Hgb 11.4 L Hct 35.8 L RDW 16.5 H [place] % (Auto) 20.2 H Lymph # (Auto) 1.34 L [place] # (Auto) 1.50 H ESR D-Dimer 0.56 H Sodium 132 L Carbon Dioxide 20 L Glucose 210 H Ferritin AST 46 H Urine Protein Urine Glucose (UA) Urine Ketones Urine Mucus Meds: Medications Acetaminophen (Acetaminophen 325 Mg Tablet) 650 mg PO Q6HP PRN; Protocol PRN Reason: Per Pain Protocol/Fever > 101 Acetaminophen/Butalbital/Caffeine (Butalb/Acetaminophen/Caffeine 1 Tablet) 1 tab PO Q6HP PRN PRN Reason: Headache Albuterol Sulfate (Albuterol Sulfate 200 Puff Inhaler) 2 puff INH .COMPLEX PRN PRN Reason: shortness of breath or wheezing Albuterol/Ipratropium (Ipratropium/Albuterol 3 Ml Ampul.Neb) 3 ml NEB Q4HP PRN PRN Reason: Shortness Of Breath Ampicillin Sodium (Ampicillin Sodium 2 Gm Vial) 2 gm IV Q4H [facility]; Protocol Last Admin: 06/06/21 06:44 Dose: Not Given Documented by: Budesonide (Budesonide 3 Mg Cap.Xl.24h) 3 mg PO TID [facility] Last Admin: 06/06/21 01:33 Dose: Not Given Documented by: Cefepime HCl (Cefepime 2 Gm Vial) 2 gm IV Q8H [facility]; Protocol Last Admin: 06/06/21 00:11 Dose: 2 gm Documented by: Clonazepam (Clonazepam 0.5 Mg Tablet) 0.5 mg PO QHS [facility] Last Admin: 06/06/21 00:10 Dose: 0.5 mg Documented by: Dextrose (Dextrose 50% 50 Ml Vial) 0 ml IV UD PRN PRN Reason: Hypoglycemia Diagnostic Test (Pha) (Accu-Chek 1 Each Strip) 1 each FS ACHS [facility] Last Admin: 06/05/21 23:41 Dose: 1 each Documented by: Enoxaparin Sodium (Enoxaparin 40 Mg/0.4 Ml Syringe) 40 mg SQ ONCE ONE Stop: 06/05/21 22:07 Last Admin: 06/06/21 00:08 Dose: 40 mg Documented by: Glucose (Dextrose 31 Gm Oral.Susp) 15 gm PO PRN PRN PRN Reason: Hypoglycemia REMDESIVIR 100 mg/ Sodium (Chloride) 250 mls @ 500 mls/hr IV DAILY [facility] Stop: 06/09/21 09:29 Potassium Chloride 40 meq/ (Dextrose) 520 mls @ 130 mls/hr IV UD PRN PRN Reason: Potassium < 3 Magnesium Sulfate (Magnesium Sulfate) 2 gm in 50 mls @ 50 mls/hr IV UD PRN PRN Reason: Magnesium </= 1.6 Sodium Chloride (Sodium Chloride 0.9%) 1,000 mls @ 100 mls/hr IV .Q10H [facility] Stop: 06/06/21 18:05 Last Admin: 06/05/21 23:39 Dose: 100 mls/hr Documented by: Insulin Human Lispro (Insulin Lispro 1 Unit/0.01 Ml Unit) 0 unit SQ ACHS [facility]; Protocol Last Admin: 06/05/21 23:53 Dose: 6 units Documented by: Metoclopramide HCl (Metoclopramide 10 Mg/2 Ml Vial) 10 mg IV Q6HP PRN PRN Reason: Nausea And Vomiting Non-Formulary Medication (Doxepin) 50 mg PO QHS [facility] Last Admin: 06/06/21 00:10 Dose: 50 mg Documented by: Non-Formulary Medication (Lisinopril) 40 mg PO QDAY [facility] Omeprazole (Omeprazole 20 Mg Capsule) 20 mg PO TID [facility] Last Admin: 06/06/21 02:09 Dose: Not Given Documented by: Ondansetron HCl (Ondansetron 4 Mg/2 Ml Vial) 4 mg IV Q4HP PRN PRN Reason: Nausea And Vomiting Polyethylene Glycol (Polyethylene Glycol 3350 17 Gm Packet) 17 gm PO DAILYP PRN PRN Reason: Constipation Potassium Chloride (Potassium Chloride 20 Meq Tablet) 40 meq PO UD PRN PRN Reason: Potssium is 3-3.5 Potassium Chloride (Potassium Chloride 20 Meq Tablet) 40 meq PO UD PRN PRN Reason: Potassium < 3 Senna (Sennosides 1 Tablet) 2 tab PO DAILYP PRN PRN Reason: Constipation Sodium Chloride (0.9 % Sodium Chloride 10 Ml Syringe) 10 ml IV Q8 [facility] Last Admin: 06/06/21 05:37 Dose: Not Given Documented by: Vancomycin HCl (Vancomycin Per Pharmacy) 1 order IV UD [facility] Vancomycin HCl (Vancomycin Per Pharmacy) 1 order IV ONCE ONE; Protocol Stop: 06/05/21 22:07 Last Admin: 06/06/21 02:11 Dose: Not Given Documented by: A/P Narrative A/P Narrative: A: *SIRS (Febrile, tachycardic,tachypnic): 2/2 covid vs other -Improving *PNA(CAP)/covid infection: -CTA no PE but small infiltrate RLL *Acute hypoxic respiratory failure: 2/2 above -1L NC *headache/neck pain: does not present like typical meningitis. Likely MSK -CT neg, initial LP in ED unsuccessful, s/p LP by [facility] *Volume depletion: overnight & today *Crohns: on remicade, symptoms started after recent infusion *Immunosuppressed: 2/2 above *DM: A1c 10.6 *Anemia, chronic: *HTN: *GERD: *Hyponatremia, mild: Resolved P: -Rem/Dex -O2 supp, IS/Acapella, prn nebs -empric abx for meningitis until LP done -BC including fungal given immunosuppression -Inflammatory/infectious markers unimpressive -SSI -Continue home medications -pt/ot -ppx: Lovenox / home PPI DNR Time Spent With Patient Time: Total time spent is greater than 50% in coordination of care (as documented) at patient's floor/unit and/or counseling patient:
[2021-06-06] MEDS ORDERED: VANCOMYCIN PER PHARMACY IV SCH (08:15)
[2021-06-06] MEDS: INSULIN LISPRO 1 UNIT/0.01 ML UNIT SQ SCH ×4 (08:29→21:18)
[2021-06-06 08:32] LABS: ALT/SGPT 31 U/L (<40); AST/SGOT 37 U/L (<40); Albumin 3.2 gm/dL (3.2-5.2); Albumin/Globulin Ratio 1.1 (1.0-2.3); Alkaline Phosphatase 60 U/L (39-117); Bilirubin,Direct < 0.2 mg/dL (0-0.3); Bilirubin,Total 0.3 mg/dL (0.1-1.0); Blood Urea Nitrogen 11 mg/dL (8-23); Carbon Dioxide 20 mmol/L (22-30); Chloride 106 mmol/L (96-108); Globulin 2.9 gm/dL (2.2-3.7); Glomerular Filtration Rate 68; Glucose 305 mg/dL (70-105); Lactate Dehydrogenase 189 U/L (135-225); Phosphorous 2.2 mg/dL (2.5-4.5); Triglycerides 95 mg/dL (<150); Uric Acid 4.2 mg/dL (2.5-8.0)
[2021-06-06] MEDS ORDERED: IOPAMIDOL 100 ML BOTTLE IV ONE (08:49)
[2021-06-06] MEDS ORDERED: LIDOCAINE 2% 20 ML VIAL SQ ONE (09:35)
[2021-06-06] MEDS: LISINOPRIL 20 MG TABLET PO SCH (09:41)
[2021-06-06] MEDS: 0.9 % SODIUM CHLORIDE 1,000 ML IV SCH (09:42)
[2021-06-06 09:46] LABS: Estimated Average Glucose(eAG) 258 mg/dL; Hemoglobin A1C 10.6 % Hgb (4.0-6.0)
--- NOTE | 2021-06-06 09:54 | XRay Report ---
CLINICAL INFORMATION: Obtundation and neck pain COMPARISON: None. TECHNIQUE: The procedure and risks including the possibility of bleeding, infection, CSF leak requiring blood patch were explained to the patient. He understood and wished to proceed. Total fluoroscopy time: One minute Under fluoroscopic guidance, the L2-3 intralaminar space was marked, prepped and locally anesthetized with 1% Lidocaine using a 25 gauge needle. A 22 gauge spinal needle was placed under fluoroscopy through the intralaminar space into the thecal sac. Opening pressure was 8 cm water Approximately 14 cc of clear CSF was aspirated and sent to pathology for requested studies. There was no apparent complication. The patient tolerated procedure well. IMPRESSION: Successful fluoroscopic guided lumbar puncture yielding 14 cc of clear CSF. Opening pressure 8 cm of water. No apparent complications. Interpreted and Authenticated by: Tamir Anderson 06/06/21
[2021-06-06] MEDS ORDERED: VANCOMYCIN 1,000 MG in 0.9 % SODIUM CHLORIDE 250 ML IV SCH (10:00)
--- NOTE | 2021-06-06 10:21 | Cat Scan Report ---
CLINICAL INFORMATION: Hypoxia COMPARISON: None. TECHNIQUE: 80ml of Isovue-370 were injected intravenously. Using SmartPrep to maximize pulmonary artery opacification, .625mm helical slices were obtained from the lung apices through the lung bases. Following reconstruction, 2.5 mm sagittal, coronal, and axial reformations were processed. The exam was reviewed at mediastinal, lung, and bone windows. The exam was performed using radiation dose optimization techniques including, but not limited to, automated exposure control, adjustment of the mA and/or kV according to patient size and use of iterative reconstruction technique. FINDINGS: Pulmonary parenchymal windows show a small tree-in-bud infiltrate in the inferior right lower lobe extending to the pleural surface. There is mild subsegmental atelectasis in both posterior lower lobes. Pleural spaces are unremarkable-no effusions. Mediastinal windows show the heart is grossly normal in size and configuration. The pulmonary arteries are normal diameter and well-opacified without evidence of embolus. Thoracic aorta is also normal diameter and well-opacified. There is no adenopathy in the mediastinal, hilar or axillary regions. Esophagus is grossly normal. A 15 mm colloid cyst is seen in the inferior left thyroid lobe. Bones and soft tissues the chest wall are normal. Images through the superior abdomen are unremarkable. IMPRESSION: 1. No evidence of pulmonary embolus. 2. Small tree-in-bud infiltrate in the inferior right lower lobe-likely infection 3. 15 mm colloid cyst in left thyroid lobe. Interpreted and Authenticated by: Tamir Anderson 06/06/21
[2021-06-06] MEDS ORDERED: MAGNESIUM SULFATE 2 GM/50 ML BAG IV ONE (10:41)
[2021-06-06 11:01] LABS: Glucose,CSF 147 mg/dL (40-70)
--- NOTE | 2021-06-06 11:20 | Discharge Summary ---
Discharge Provider Provider Patient information: Note initiated : 06/06/21 at 11:18 am Service Date, if different from initiated Date: [] Patient: Semaj Garnica 70 y/o M admitted on 06/05/21 for head, neck and back pain. Chief Complaint: [] Date of admission: 06/05/21 22:05 Discharge date: 06/07/21 Primary care physician: RINKU Anderson Consults: 06/05/21 Consult to Physician [CONS] Stat Comment: Consulting Provider: Eloy Mendoza Reason For Exam: Physician to Consult Discharge Meds Discharge Medications Home Medications calcium carbonate 600 mg-vitamin D3 20 mcg (800 unit) tablet 1 tab PO QDAY tab 10/16/14 [History Confirmed 06/05/21 Last Taken 09/22/16] vitamin E 400 unit capsule 400 unit PO DAILY 07/31/15 [History Confirmed 06/05/21 Last Taken 09/22/16] lecithin 1,200 mg capsule 1,200 mg PO .COMPLEX PRN 12/26/18 [History Confirmed 06/05/21 Last Taken Unknown] magnesium 250 mg tablet 400 mg PO BID tab 12/26/18 [History Confirmed 06/05/21 Last Taken Unknown] multivitamin with iron [One Tablet Daily/Iron] 1 cap PO QDAY 03/27/19 [History Confirmed 06/05/21 Last Taken Unknown] omeprazole 20 mg capsule,delayed release 20 mg PO TID #90 cap 09/06/19 [Rx Confirmed 06/05/21 Last Taken Unknown] blood sugar diagnostic (Accu-Chek SmartView Test Strip) #100 each 04/13/20 [Rx Confirmed 06/05/21 Last Taken Unknown] budesonide 3 mg capsule,delayed,extended release 3 mg PO TID 08/28/20 [History Confirmed 06/05/21 Last Taken Unknown] albuterol sulfate 90 mcg/actuation aerosol inhaler (Ventolin HFA) 2 puff INHALATION .COMPLEX PRN #18 g 12/04/20 [Rx Confirmed 06/05/21 Last Taken Unknown] lisinopril 40 mg tablet 40 mg PO QDAY #90 tab 01/18/21 [Rx Confirmed 06/05/21 Last Taken Unknown] clonazepam 0.5 mg tablet 0.5 mg PO QHS 06/05/21 [History Confirmed 06/05/21 Last Taken Unknown] cyanocobalamin (vitamin B-12) 1,000 mcg/mL injection solution 1,000 mcg IM QMONTH 06/05/21 [History Confirmed 06/05/21 Last Taken Unknown] doxepin 50 mg capsule 50 mg PO QHS 06/05/21 [History Confirmed 06/05/21 Last Taken Unknown] glipizide 5 mg tablet, extended release 24 hr 10 mg PO BID 06/05/21 [History Confirmed 06/05/21 Last Taken Unknown] metformin 500 mg tablet,extended release 24 hr 500 mg PO BID 06/05/21 [History Confirmed 06/05/21 Last Taken Unknown] amoxicillin 875 mg-potassium clavulanate 125 mg tablet 1 tab PO BID #8 tab 06/06/21 [Rx Last Taken Unknown] COURSE Hospital Course Hospital course: History of present illness: Mr. Garnica is a 70 year old M Scented to minor care because he felt weak headaches body aches fever lightheadedness. He got his Remicade infusion for Crohn's yesterday morning and then started feeling crummy afterwards and has continued since that time. He has a bad headache with pain in the neck as well. No significant photophobia more than usual. Does complain of stiff neck. No nausea vomiting. Is found to be tachycardic tachypneic and febrile in the ED. Has had the [employer] vaccine and booster. has had a cough and shortness of breath. Head CT was negative. Covid test was positive. Given the headache fever stiff neck and an LP was attempted but unsuccessful. Tachycardia improved with IV fluids. 06/06 Patient states that he only has a mild headache. He flexes and rotates his neck and says he only feels some mild muscle tenderness. Minimal cough and shortness of breath much better. CTA with no PEs but did show small tree-in-bud infiltrate inferior right lower. Lumbar puncture done with opening pressure only 8 and clear fluid. Low ESR and CRP and procalcitonin 06/07 Doing well. On room air. A: *SIRS (Febrile, tachycardic,tachypnic): 2/ covid CAP *PNA(CAP)/covid infection: -CTA no PE but small infiltrate RLL *Acute hypoxic respiratory failure: 2/2 above *headache/neck pain: MSK *Volume depletion: *Crohns: on remicade, symptoms started after recent infusion *Immunosuppressed: 2/2 above *DM: A1c 10.6 *Anemia, chronic: *HTN: *GERD: *Hyponatremia, mild: Resolved P: Discharge diagnosis: SIRS Covid prodrome infection pneumonia hypoxia Secondary discharge diagnosis: On completion Crohn's immunosuppressed diabetes anemia hypertension GERD hyponatremia Time Spent with Patient Time attestation: Total time spent providing and/or coordinating discharge services: Time spent: Greater than 30 minutes EXAM Constitutional Vitals: Temp Pulse Resp BP Pulse Ox 98.3 F 84 20 106/79 97 06/06/21 11:05 06/06/21 07:14 06/06/21 11:05 06/06/21 11:05 06/06/21 11:05 Discharge Data Data Completed and Pending Labs on day of discharge: Labs from last 24 hours 06/06/21 06/06/21 06/06/21 10:45 09:24 05:00 WBC RBC Hgb Hct MCV MCH MCHC RDW Plt Count MPV Neut % (Auto) Lymph % (Auto) [place] % (Auto) Eos % (Auto) Baso % (Auto) Lymph # (Auto) [place] # (Auto) Eos # (Auto) Baso # (Auto) Absolute Neutrophils Platelet Estimate RBC Morphology ESR PT INR D-Dimer VBG Lactic Acid Sodium Potassium Chloride Carbon Dioxide Anion Gap BUN Creatinine GFR Calculation Glucose Hemoglobin A1c Estim Average Glucose Uric Acid Calcium Phosphorus Magnesium Ferritin Total Bilirubin Direct Bilirubin GGT AST ALT Alkaline Phosphatase Lactate Dehydrogenase C-Reactive Protein Total Protein Albumin Globulin Albumin/Globulin Ratio Triglycerides Procalcitonin 0.09 Urine Color Urine Appearance Urine pH Ur Specific [place] Urine Protein Urine Glucose (UA) Urine Ketones Urine Occult Blood Urine Nitrate Urine Bilirubin Urine Urobilinogen Ur Leukocyte Esterase Urine RBC Urine WBC Ur Squamous Epith Cells Urine Bacteria Urine Mucus Ur Culture Indicated? CSF Source Pending CSF Appearance Pending CSF Color Pending CSF Total Nucleated Auto Pending CSF Glucose CSF Total Protein CSF Mening/Enceph PCR Pending HSV I IgG Ab HSV II IgG 06/06/21 06/06/21 06/05/21 04:56 04:56 16:00 WBC 4.5 RBC 3.73 L Hgb 10.0 L Hct 33.1 L MCV 88.7 MCH 26.8 MCHC 30.2 L RDW 16.8 H Plt Count 175 MPV 9.9 Neut % (Auto) Lymph % (Auto) [place] % (Auto) Eos % (Auto) Baso % (Auto) Lymph # (Auto) [place] # (Auto) Eos # (Auto) Baso # (Auto) Absolute Neutrophils Platelet Estimate Pending RBC Morphology Pending ESR PT INR D-Dimer VBG Lactic Acid Sodium 137 Potassium 4.4 Chloride 106 Carbon Dioxide 20 L Anion Gap 11.0 BUN 11 Creatinine 1.1 GFR Calculation 68 Glucose 305 H Hemoglobin A1c 10.6 H Estim Average Glucose 258 Uric Acid 4.2 Calcium 8.0 L Phosphorus 2.2 L Magnesium 1.5 L Ferritin Total Bilirubin 0.3 Direct Bilirubin < 0.2 GGT 23 AST 37 ALT 31 Alkaline Phosphatase 60 Lactate Dehydrogenase 189 C-Reactive Protein Total Protein 6.1 Albumin 3.2 Globulin 2.9 Albumin/Globulin Ratio 1.1 Triglycerides 95 Procalcitonin Urine Color Yellow Urine Appearance Clear Urine pH 5.5 Ur Specific [place] >= 1.030 Urine Protein Trace A Urine Glucose (UA) 500 mg/dl A Urine Ketones Trace A Urine Occult Blood Negative Urine Nitrate Negative Urine Bilirubin Negative Urine Urobilinogen Normal Ur Leukocyte Esterase Negative Urine RBC 0 Urine WBC 1 Ur Squamous Epith Cells < 1 Urine Bacteria None Urine Mucus Many A Ur Culture Indicated? No CSF Source CSF Appearance CSF Color CSF Total Nucleated Auto CSF Glucose CSF Total Protein CSF Mening/Enceph PCR HSV I IgG Ab HSV II IgG 06/05/21 06/05/21 06/05/21 15:45 15:45 15:45 WBC RBC Hgb Hct MCV MCH MCHC RDW Plt Count MPV Neut % (Auto) Lymph % (Auto) [place] % (Auto) Eos % (Auto) Baso % (Auto) Lymph # (Auto) [place] # (Auto) Eos # (Auto) Baso # (Auto) Absolute Neutrophils Platelet Estimate RBC Morphology ESR 23 H PT INR D-Dimer VBG Lactic Acid Sodium Potassium Chloride Carbon Dioxide Anion Gap BUN Creatinine GFR Calculation Glucose Hemoglobin A1c Estim Average Glucose Uric Acid Calcium Phosphorus Magnesium Ferritin 26.1 L Total Bilirubin Direct Bilirubin GGT AST ALT Alkaline Phosphatase Lactate Dehydrogenase C-Reactive Protein 0.50 Total Protein Albumin Globulin Albumin/Globulin Ratio Triglycerides Procalcitonin Urine Color Urine Appearance Urine pH Ur Specific [place] Urine Protein Urine Glucose (UA) Urine Ketones Urine Occult Blood Urine Nitrate Urine Bilirubin Urine Urobilinogen Ur Leukocyte Esterase Urine RBC Urine WBC Ur Squamous Epith Cells Urine Bacteria Urine Mucus Ur Culture Indicated? CSF Source CSF Appearance CSF Color CSF Total Nucleated Auto CSF Glucose CSF Total Protein CSF Mening/Enceph PCR HSV I IgG Ab Pending HSV II IgG Pending 06/05/21 06/05/21 06/05/21 15:45 15:45 15:45 WBC RBC Hgb Hct MCV MCH MCHC RDW Plt Count MPV Neut % (Auto) Lymph % (Auto) [place] % (Auto) Eos % (Auto) Baso % (Auto) Lymph # (Auto) [place] # (Auto) Eos # (Auto) Baso # (Auto) Absolute Neutrophils Platelet Estimate RBC Morphology ESR PT 13.5 INR 1.0 D-Dimer 0.56 H VBG Lactic Acid 1.1 Sodium 132 L Potassium 3.9 Chloride 99 Carbon Dioxide 20 L Anion Gap 13.0 BUN 10 Creatinine 1.1 GFR Calculation 68 Glucose 210 H Hemoglobin A1c Estim Average Glucose Uric Acid Calcium 9.1 Phosphorus Magnesium Ferritin Total Bilirubin 0.3 Direct Bilirubin GGT AST 46 H ALT 37 Alkaline Phosphatase 75 Lactate Dehydrogenase C-Reactive Protein Total Protein 7.0 Albumin 3.9 Globulin 3.1 Albumin/Globulin Ratio 1.3 Triglycerides Procalcitonin Urine Color Urine Appearance Urine pH Ur Specific [place] Urine Protein Urine Glucose (UA) Urine Ketones Urine Occult Blood Urine Nitrate Urine Bilirubin Urine Urobilinogen Ur Leukocyte Esterase Urine RBC Urine WBC Ur Squamous Epith Cells Urine Bacteria Urine Mucus Ur Culture Indicated? CSF Source CSF Appearance CSF Color CSF Total Nucleated Auto CSF Glucose CSF Total Protein CSF Mening/Enceph PCR HSV I IgG Ab HSV II IgG 06/05/21 06/05/21 15:45 09:27 WBC 7.4 RBC 4.21 L Hgb 11.4 L Hct 35.8 L MCV 85.0 MCH 27.1 MCHC 31.8 RDW 16.5 H Plt Count 217 MPV 10.2 Neut % (Auto) 61.3 Lymph % (Auto) 18.1 [place] % (Auto) 20.2 H Eos % (Auto) 0.3 Baso % (Auto) 0.1 Lymph # (Auto) 1.34 L [place] # (Auto) 1.50 H Eos # (Auto) 0.02 Baso # (Auto) 0.01 Absolute Neutrophils 4.54 Platelet Estimate RBC Morphology ESR PT INR D-Dimer VBG Lactic Acid Sodium Potassium Chloride Carbon Dioxide Anion Gap BUN Creatinine GFR Calculation Glucose Hemoglobin A1c Estim Average Glucose Uric Acid Calcium Phosphorus Magnesium Ferritin Total Bilirubin Direct Bilirubin GGT AST ALT Alkaline Phosphatase Lactate Dehydrogenase C-Reactive Protein Total Protein Albumin Globulin Albumin/Globulin Ratio Triglycerides Procalcitonin Urine Color Urine Appearance Urine pH Ur Specific [place] Urine Protein Urine Glucose (UA) Urine Ketones Urine Occult Blood Urine Nitrate Urine Bilirubin Urine Urobilinogen Ur Leukocyte Esterase Urine RBC Urine WBC Ur Squamous Epith Cells Urine Bacteria Urine Mucus Ur Culture Indicated? CSF Source Pending CSF Appearance Pending CSF Color Pending CSF Total Nucleated Auto Pending CSF Glucose 147 H CSF Total Protein 48.0 CSF Mening/Enceph PCR HSV I IgG Ab HSV II IgG Discharge Plan Patient/Caregiver Discharge Instructions Activity: increase activity as tolerated Diet: Consistent Carbohydrate Prescriptions: New amoxicillin-pot clavulanate 875-125 mg tablet 1 tab PO BID Qty: 8 0RF Continued omeprazole 20 mg capsule,delayed release(DR/EC) 20 mg PO TID Qty: 90 5RF (DME) Accu-Chek SmartView Test Strip Strip See Rx Instructions .ROUTE .MEDSUPPLY Qty: 100 0RF Rx Instructions: test blood glucose once daily. DX: E11.65 lisinopril 40 mg tablet 40 mg PO QDAY Qty: 90 1RF calcium carbonate-vitamin D3 600 mg(1,500mg) -800 unit tablet 1 tab PO QDAY 0RF Rx Instructions: administer with food lecithin 1,200 mg capsule 1,200 mg PO .COMPLEX PRN (Reason: Mouth Sore Pain) 0RF Label Comments: 1,200 mg PO PRN; Rx Instructions: 1,200 mg PO PRN; multivitamin with iron 1 cap PO QDAY 0RF Rx Instructions: OTC IRON TABLET qd albuterol sulfate [Ventolin HFA] 90 mcg/actuation HFA aerosol inhaler 2 puff inhalation .COMPLEX PRN (Reason: shortness of breath or wheezing) Qty: 18 2RF Rx Instructions: 2 puffs inhalation q 4-6 hrs prn for wheezing and/or SOB PRN; vitamin E 400 UNIT capsule 400 unit PO DAILY 0RF magnesium 250 mg tablet 400 mg PO BID 0RF budesonide 3 mg Capsule,Delayed,Extend.Release 3 mg PO TID 0RF doxepin 50 mg capsule 50 mg PO QHS 0RF Rx Instructions: TAKE 1 CAPSULE AT BEDTIME clonazepam 0.5 mg tablet 0.5 mg PO QHS 0RF Rx Instructions: take 1 tablet by mouth at bedtime glipizide 5 mg tablet extended release 24 hr 10 mg PO BID 0RF Rx Instructions: TAKE 2 TABLETS EVERY MORNING AND 2 TABLET EVERY EVENING metformin 500 mg tablet extended release 24 hr 500 mg PO BID 0RF Rx Instructions: take 2 tablets by mouth twice a day cyanocobalamin (vitamin B-12) 1,000 mcg/mL solution 1,000 mcg IM QMONTH 0RF Rx Instructions: inject 1 milliliter ( 1000 MCG ) intramuscularly Every Month Follow Up Plan Follow up with: Nick Gonsalez ARNP [Primary Care Provider] - Patient Disposition: Home, Self-Care Prognosis: Fair Overall status at discharge: patient is progressing back to baseline Discharge Orders: Discharge Order (Routine); Ordered 06/07/21 Ordered By: Eloy Mendoza
[2021-06-06] MEDS: AMPICILLIN SODIUM 2 GM in 0.9 % SODIUM CHLORIDE 100 ML IV SCH ×2 (11:25→16:31)
[2021-06-06] MEDS: glipiZIDE 5 MG TAB.XL.24H PO SCH ×2 (11:43→21:10)
[2021-06-06] MEDS: NEUTRA PHOS 1 PACKET PO SCH ×2 (11:45→21:12)
[2021-06-06] MEDS: OMEPRAZOLE 20 MG CAPSULE PO SCH ×2 (12:11→16:30)
[2021-06-06] MEDS: REMDESIVIR 100 MG in 0.9 % SODIUM CHLORIDE 250 ML IV SCH (12:15)
[2021-06-06 14:29] LABS: Anisocytosis 2+ (None Seen); Band Neutrophils % 1 % (0-10); Lymphocytes % 26 % (15-49); Monocytes % (Manual) 3 % (1-12); Platelet Estimate NORMAL (Normal); RBC Morphology ABNORMAL (Normal); Reactive Lymphocytes 1 % (0-2); Segmented Neutrophils % 69 % (38-78)
[2021-06-06 16:22] LABS: Appearance,CSF Clear; Lymphocytes,CSF 63 % (28-96); Monocytes,CSF 38 % (16-56); Neutrophils,CSF 0 % (0-7); Nucleated Cells,CSF 8 /cumm (0-5); Red Blood Cell,CSF 425 /cumm (0-1)
[2021-06-06 19:24] LABS: Appearance,CSF Clear; Lymphocytes,CSF 92 % (28-96); Monocytes,CSF 8 % (16-56); Neutrophils,CSF 0 % (0-7); Nucleated Cells,CSF 13 /cumm (0-5); Red Blood Cell,CSF 516 /cumm (0-1)
[2021-06-06] MEDS ORDERED: DOXEPIN 25 MG CAPSULE PO SCH (21:00)
[2021-06-07] MEDS: CEFEPIME 2 GM VIAL IV SCH (05:29)
[2021-06-07] MEDS: 0.9 % SODIUM CHLORIDE 10 ML SYRINGE IV SCH (05:30)
[2021-06-07] MEDS ORDERED: DEXAMETHASONE 4 MG TABLET PO ONE (07:36)
[2021-06-07] MEDS: BUDESONIDE 3 MG CAP.XL.24H PO SCH (07:43)
[2021-06-07] MEDS: OMEPRAZOLE 20 MG CAPSULE PO SCH (07:43)
[2021-06-07 08:04] LABS: ALT/SGPT 27 U/L (<40); AST/SGOT 27 U/L (<40); Albumin 3.2 gm/dL (3.2-5.2); Albumin/Globulin Ratio 1.1 (1.0-2.3); Alkaline Phosphatase 60 U/L (39-117); Bilirubin,Direct < 0.2 mg/dL (0-0.3); Bilirubin,Total 0.3 mg/dL (0.1-1.0); Blood Urea Nitrogen 16 mg/dL (8-23); Calcium 7.9 mg/dL (8.6-10.4); Carbon Dioxide 24 mmol/L (22-30); Chloride 103 mmol/L (96-108); Globulin 2.9 gm/dL (2.2-3.7); Glomerular Filtration Rate 77; Glucose 229 mg/dL (70-105); Lactate Dehydrogenase 185 U/L (135-225); Phosphorous 3.1 mg/dL (2.5-4.5); Triglycerides 105 mg/dL (<150); Uric Acid 3.4 mg/dL (2.5-8.0)
[2021-06-07] MEDS: INSULIN LISPRO 1 UNIT/0.01 ML UNIT SQ SCH (08:38)
[2021-06-07] MEDS: LISINOPRIL 20 MG TABLET PO SCH (08:39)
[2021-06-07] MEDS: glipiZIDE 5 MG TAB.XL.24H PO SCH (08:39)
[2021-06-07] MEDS: REMDESIVIR 100 MG in 0.9 % SODIUM CHLORIDE 250 ML IV SCH (10:36)
[2021-07-21 15:12] LABS: East EQ IGG CSF <1:1; HSV 1 IGG Index CSF 0.32; HSV 1 IGM Screen CSF NEGATIVE; HSV 2 IBM Screen CSF NEGATIVE; HSV 2 IGG Index CSF 0.04; LCM IGG <1:1; LCM IGM <1:1; WNV IGG Screen <1.30 index; WNV IGM Screen <0.90 index
== END 2021-06-07 10:25 | disposition home or self-care (01) | DRG 177 ==
LOC: ED 15:28 → ICU 22:05
PROVIDERS: ADMIT Internal Medicine; ATTEND Internal Medicine